=== PATIENT | male | born 1965 ===

== ENCOUNTER 2023-07-18 06:26 | Day surgery (SDC) | payer OTHER | END 2023-07-18 11:50 | disposition home or self-care (01) | LOC: AMB-ENDOS 06:26 | PROVIDERS: ATTEND Surgery | DX: K63.5 Polyp of colon (principal); K57.30 Diverticulosis of large intestine without perforation or abscess without bleeding; K64.8 Other hemorrhoids; Z88.0 Allergy status to penicillin ==